=== PATIENT | female | born 1935 | race Caucasian/White ===

== ENCOUNTER 2019-01-22 05:10 | Observation (INO) ==
--- NOTE | 2019-01-02 11:26 | Anesthesiology Consultation ---
Date of Service January 02, 2019 Assessment & Plan (1) Encounter for pre-operative examination: Chart Review Chart Review: Acceptable Risk for Surgery and Patient NOT seen in Pre Admission Testing History Surgery Operation Date: 01/22/19 07:15 Proposed Procedures p Laparoscopic Cholecystectomy, Possible Open, Possible Cholangiogram - Marielle Vasquez MD Height/Weight Height: 5 ft 2 in Weight: 72.575 kg Allergies Allergy/AdvReac Type Severity Reaction Status Date / Time No Known Allergies Allergy Verified 01/01/19 11:22 Medications Home Medications Medication Instructions Recorded Confirmed Last Taken biotin 1 cap PO QAM 01/01/19 01/01/19 Unknown escitalopram oxalate 5 mg PO QAM 01/01/19 01/01/19 Unknown levothyroxine 50 mcg PO QAM 01/01/19 01/01/19 Unknown multivitamin 1 tab PO QAM 01/01/19 01/01/19 Unknown pantoprazole 20 mg PO QAM 01/01/19 01/01/19 Unknown Past Medical History Medical History Depression Diverticular disease GERD (gastroesophageal reflux disease) Heart palpitations History of tooth extraction Hypothyroidism Osteoarthritis Past Family History Family History Brother Pseudocholinesterase deficiency Family history of diabetes mellitus Family/Other Pseudocholinesterase deficiency NIECE Mother Family hx of colon cancer Past Surgical History Surgical History History of appendectomy History of cataract surgery History of colonoscopy History of esophagogastroduodenoscopy (EGD) History of foot surgery LT History of left breast biopsy History of removal of cyst RT KNEE History of tonsillectomy and adenoidectomy History of total abdominal hysterectomy and bilateral salpingo-oophorectomy Slow to wake up after anesthesia Social History Smoking Status: Never smoker Do You Dip or Chew Tobacco: No Hx Alcohol Use: No Hx Substance Use: No substance use type: does not use Testing Laboratory Results 12/28/18 WBC 7.09 H/H 13.7/40.3 PLATELETS 285 SODIUM 146 POTASSIUM 4.4 CHLORIDE 105 CO2 28 BUN 16 CREATININE 1.1 GLUCOSE 102 Electrocardiogram Date: 12/14/18 Findings: + NSR @ (74)
[2019-01-22] MEDS ORDERED: LR 15ML/HR IV SCH (06:00)
[2019-01-22] MEDS ORDERED: CEFAZOLIN 2000MG 2,000 MG/15 ML SYR IV SCH (06:00)
[2019-01-22] MEDS ORDERED: PROPOFOL IV EMULSION 10 MG/ML 20 ML VIAL IV ONE (06:19)
[2019-01-22] MEDS ORDERED: LIDOCAINE HCL 2% 2 ML VIAL/AMP(20MG/ML) INFIL ONE (06:19)
[2019-01-22] MEDS ORDERED: ONDANSETRON INJ 2 MG/ML 2 ML VIAL ONE (06:20)
[2019-01-22] MEDS ORDERED: ROCURONIUM BROMIDE 10 MG/ML 5 ML VIAL ONE (06:20)
[2019-01-22] MEDS ORDERED: DEXAMETHASONE SOD INJ 4 MG/ML VIAL ONE (06:20)
[2019-01-22] MEDS ORDERED: fentaNYL citrate 100 MCG/2 ML VIAL ONE ×2 (06:20→07:48)
[2019-01-22] MEDS ORDERED: MIDAZOLAM HCL 1 MG/ML 2ML VIAL ONE (06:21)
[2019-01-22] MEDS ORDERED: BUPIVACAINE 0.5 % 5 MG/1 ML MPF 30ML VIAL ONE (06:45)
[2019-01-22] MEDS ORDERED: BACITRACIN OINT 15 GM TUBE ONE (06:45)
[2019-01-22] MEDS ORDERED: LIDOCAINE HCL 1% 20 ML VIAL ONE (06:45)
[2019-01-22] MEDS ORDERED: CEFAZOLIN 2000MG 2,000 MG/15 ML SYR IV ONE (06:46)
--- NOTE | 2019-01-22 06:46 | History & Physical Bridge Note ---
Date of Service January 22, 2019 History & Physical Bridge Note I have examined the patient, reviewed the History & Physical and in the interval since the performance of the History & Physical I have noted the following changes of clinical significance: no changes noted
[2019-01-22] MEDS ORDERED: METOCLOPRAMIDE HCL INJ 5 MG/ML 2 ML VIAL IV PRN (06:58)
[2019-01-22] MEDS ORDERED: ATROPINE SULFATE 0.1 MG/ML 10ML SYR IV PRN (06:58)
[2019-01-22] MEDS ORDERED: PROMETHAZINE HCL 12.5 MG in SODIUM CHLORIDE 0.9% 50 ML IV PRN (06:58)
[2019-01-22] MEDS ORDERED: ONDANSETRON INJ 2 MG/ML 2 ML VIAL IV PRN (06:58)
[2019-01-22] MEDS ORDERED: HYDROmorphone INJ 1 MG/ML SYRINGE IV PRN (06:58)
[2019-01-22] MEDS ORDERED: fentaNYL citrate 100 MCG/2 ML VIAL IV PRN (06:58)
[2019-01-22] MEDS ORDERED: ePHEDrine sulfate 50 MG/ML AMP IV PRN (06:58)
[2019-01-22] MEDS ORDERED: GLYCOPYRROLATE 0.2 MG/ML VIAL ONE ×2 (07:33→08:19)
[2019-01-22] MEDS ORDERED: NEOSTIGMINE METHYLSULFATE 5 MG/5 ML SYR ONE (07:33)
[2019-01-22] MEDS ORDERED: ePHEDrine sulfate 50 MG/ML AMP ONE (07:44)
--- NOTE | 2019-01-22 08:27 | Post Operative Brief Note ---
Immediate Post Op Note v1 Date of Surgery January 22, 2019 Pre & Post Diagnosis Operation Date: 01/22/19 07:00 Pre-Op Diagnosis: Symptomatic Cholelithiasis Post-Op Diagnosis: Symptomatic Cholelithiasis Procedure Operation Date: 01/22/19 07:00 Actual Procedures p Laparoscopic Cholecystectomy(Not Applicable) - Marielle Vasquez MD Surgeon Marielle Vasquez MD Housing Case Manager SARAH Gracia Estimated Blood Loss 10 Findings Consistent with Post-Op Diagnosis chronic cholecystitis, cholelithiasis Fluids 1100ml Specimens gallbladder Anesthesia Type General Complications none Disposition Accompanied Patient To Recovery: Yes Disposition: Recovery Room Overlapping Procedure I was immediately available: during the entire case.
[2019-01-22] MEDS ORDERED: OXYCODONE/ACETAMINOPHEN 5mg/325mg TAB PO PRN (08:54)
[2019-01-22] MEDS ORDERED: HYDROmorphone INJ 0.5 MG/0.5 ML SYR IV PRN (08:55)
[2019-01-22] MEDS: LACTATED RINGER'S 1,000 ML IV SCH ×2 (09:40→21:20)
--- NOTE | 2019-01-22 09:51 | Anesthesiology Progress Note ---
Date of Service January 22, 2019 Anesthesia Post Procedure Vital Signs Vital Signs: Temp Pulse Pulse Resp BP BP Pulse Ox 01/22/19 09:25 36.5 C 66 18 150/78 H 98 01/22/19 09:15 73 18 134/76 97 01/22/19 09:05 64 20 159/82 H 100 01/22/19 08:55 74 18 150/68 H 100 01/22/19 08:49 36.8 C 96 H 18 164/80 H 100 01/22/19 05:58 37.1 C 101 H 22 157/71 H 97 Pain Intensity Abdomen: Pain Intensity: 4 Transfer of Care Handoff Completed per policy Notes Mental Status: alert / awake / arousable and participated in evaluation Patient Amnestic to Procedure: Yes Nausea / Vomiting: adequately controlled Pain: adequately controlled Airway Patency, RR, SpO2: stable & adequate BP & HR: stable & adequate Hydration State: stable & adequate Anesthetic Complications: no major complications apparent
[2019-01-22] MEDS: SULFAMETHOXAZOLE/TRIMETHOPRIM DS 800/160MG TAB PO SCH ×2 (11:33→21:19)
--- NOTE | 2019-01-22 13:44 | Operative Report ---
DATE OF OPERATION: 01/22/2019 PREOPERATIVE DIAGNOSES: Chronic cholecystitis, cholelithiasis. POSTOPERATIVE DIAGNOSES: Chronic cholecystitis, cholelithiasis. OPERATION: Laparoscopic cholecystectomy. SURGEON: Marielle Vasquez MD. CANDLE POURER: Coby Wilde PA-C. ANESTHESIA: General. ESTIMATED BLOOD LOSS: About 10 mL. FINDINGS: Chronic cholecystitis, cholelithiasis. COMPLICATIONS: None. INDICATIONS FOR THE PROCEDURE: This is an 83-year-old female who presented with symptomatic cholelithiasis. The patient will be required to do laparoscopic cholecystectomy, possible open, possible cholangiogram. I did talk to the patient about the benefit and risk, alternate procedure. I indicated the risks may include but not limited such as bleeding, infection, injury to common bile duct, injury to the bowel, myocardial infarction, DVT, stroke and even . The patient understands. She signed informed consent and I answered all questions. DETAILS OF PROCEDURE: We brought the patient to the OR, put the patient in the supine position. The patient received SCD on bilateral legs to prevent DVT. Also, patient received 2 grams Ancef IV for prophylactic antibiotic. The patient received general anesthesia without difficulty. His abdomen was appropriately draped in routine sterile fashion. After time out, I injected local anesthesia by using 1% lidocaine mixed with 0.5% Marcaine just above umbilicus. Then I made a small incision just above umbilicus, opened fascia and opened peritoneum under direct vision, put a Tae trocar in, connected to CO2 to create pneumoperitoneum. Flow rate is 6 liter per minute. Pressure not more than 14 mmHg. Once we got a nice pneumoperitoneum, we put the camera in, looked around the abdomen shows normal finding on the liver. However, the gallbladder shows chronic cholecystitis. Then, we put another two 5 mm trocar on the right upper quadrant, one 11 trocar on the epigastric area. Once all trocars in, we put a grasper to hold the base of gallbladder, put direction to the diaphragm, put another grasper to hold the pouch of gallbladder, put the latter to expunge the triangle of Calot, the cystic duct was identified and mobilized. Then I put two 10 mm metal clips on the proximal cystic duct, one on the distal cystic duct. I used a scissor for transection of cystic duct, no bile leak. Then the cystic artery was identified and mobilized. I put two 5 mm metal clip on the proximal cystic artery, one on the distal cystic artery and used a scissor for transection of the cystic artery. Rechecked, no active bleeding and then we used the Bovie to take down gallbladder from the liver bed. Rechecked and no active bleeding, no bile leak from the liver bed. Then we removed gallbladder through the catch bag then we reinserted Tae trocar in, connected to CO2 to create pneumoperitoneum, again looked around the abdomen, no active bleeding, no bile leak from the liver bed. Pneumoperitoneum was released. Then we removed all the trocars under direct vision. No active bleeding from the trocar sites. Pneumoperitoneum was released. Then we closed the umbilical incision, fascial layer by using #1 Vicryl [id number] x2, closed subcutaneous layer by using 2-0 Vicryl interrupted and closed skin by using 4-0 Vicryl continuous running, closed the 11 trocar site subcutaneous layer by using 2-0 Vicryl interruptedly, closed skin by using 4-0 Vicryl and closed another 5 mm trocar site skin only by using 4-0 Vicryl. Then we put the dressing on. The patient tolerated the procedure well. All instrument, needle and sponge count were correct x2 at the end of the case. The patient transferred to recovery room in stable condition. Specimen sent to the pathology and after procedure, the patient will be admitted to hospital overnight for observation. The patient and family member agree with this plan. I attest to the content of the Intraoperative Record and any orders documented therein. Any exception s are noted below.
[2019-01-22] MEDS ORDERED: CEFAZOLIN 1000MG 1,000 MG/7.5 ML SYR IV ONE (15:00)
[2019-01-23] MEDS ORDERED: LEVOTHYROXINE SODIUM 50 MCG TABLET PO SCH (06:30)
[2019-01-23] MEDS ORDERED: PNEUMOCOCCAL ADMINISTRATION CHARGE ONE (08:00)
[2019-01-23] MEDS ORDERED: PNEUMOCOCCAL POLYSACCHARIDES 25 MCG/0.5 ML VIAL/SYR IM ONE (08:00)
[2019-01-23 08:08] LABS: Basophils # (auto) 0.07 K/uL (0-0.2); Eosinophils # (auto) 0.26 K/uL (0-0.5); Eosinophils % (auto) 3.8 %; Hematocrit (blood only) 29.6 % (37-47); Hemoglobin 10.4 g/dL (12.0-16.0); Immature Granulocytes # (auto) 0.02 K/uL (0.00-0.02); Immature Granulocytes % (auto) 0.3 %; Lymphocytes # (auto) 1.49 K/uL (1.2-3.4); Mean Corpuscular Hgb Conc 35.1 g/dL (32-36); Mean Corpuscular Volume 91.1 fL (80-100); Mean Platelet Volume 8.9 fL (7.4-10.4); Monocytes # (auto) 0.43 K/uL (0.11-0.59); Monocytes % (auto) 6.4 %; Neutrophils # (auto) 4.49 K/uL (1.4-6.5); Neutrophils % (auto) 66.5 %; Platelet Count 180 K/uL (130-400); RDW Standard Deviation 43.2 fL (36.4-46.3); Red Blood Count 3.25 M/uL (4.2-5.4); White Blood Count 6.76 K/uL (4.8-10.8)
[2019-01-23 08:16] LABS: BUN Creatinine Ratio 9.7 (10-20); Calcium 8.6 mg/dl (8.5-10.1); Creatinine Clr Calc Pharmacy 42.7 ml/min; Est GFR (African American) 65.1; Est GFR (Non-African American) 56.2; Potassium 3.8 mmol/L (3.5-5.1)
[2019-01-23 08:19] LABS: Albumin Globulin Ratio 1.2 (0.9-2); Bilirubin,Total 0.3 mg/dl (0.2-1); Globulin 2.5 gm/dl (2.5-4.0); Total Protein 5.5 gm/dl (6.4-8.2)
--- NOTE | 2019-01-23 08:23 | Anesthesiology Progress Note ---
Date of Service January 23, 2019 Anesthesia Post Procedure Vital Signs Vital Signs: Temp Pulse Pulse Resp BP Pulse Ox 01/23/19 07:25 36.7 C 64 20 110/70 94 01/23/19 03:00 36.7 C 67 18 163/80 H 97 01/22/19 23:47 36.8 C 72 18 131/60 95 01/22/19 19:12 37 C 76 16 123/75 95 01/22/19 15:26 36.6 C 66 16 124/75 94 01/22/19 13:45 36.5 C 88 16 121/74 99 01/22/19 11:40 36.6 C 71 16 136/73 96 01/22/19 10:45 36.5 C 67 16 144/71 H 97 01/22/19 10:15 72 16 156/85 H 01/22/19 09:40 36.3 C L 66 14 144/70 H 98 01/22/19 09:25 36.5 C 66 18 150/78 H 98 01/22/19 09:15 73 18 134/76 97 01/22/19 09:05 64 20 159/82 H 100 01/22/19 08:55 74 18 150/68 H 100 01/22/19 08:49 36.8 C 96 H 18 164/80 H 100 Pain Intensity Abdomen: Pain Intensity: 4 Notes Mental Status: alert / awake / arousable and participated in evaluation Patient Amnestic to Procedure: Yes Nausea / Vomiting: adequately controlled Pain: adequately controlled Airway Patency, RR, SpO2: stable & adequate BP & HR: stable & adequate Hydration State: stable & adequate Anesthetic Complications: no major complications apparent and Pt Satisfied with anesthetic care
[2019-01-23] MEDS ORDERED: PANTOprazole 40 MG TAB PO SCH (09:00)
[2019-01-23] MEDS ORDERED: NON-FORMULARY MEDICATION (Biotin 1 CAP) PO SCH (09:00)
[2019-01-23] MEDS ORDERED: ESCITALOPRAM OXALATE 10 MG TAB PO SCH (09:00)
[2019-01-23] MEDS ORDERED: MULTIVITAMIN TAB PO SCH (09:00)
--- NOTE | 2019-01-23 10:09 | Surgery Progress Note ---
Date of Service January 23, 2019 Assessment & Plan (1) S/P laparoscopic cholecystectomy: POD # 1 s/p laparoscopic cholecystectomy -vitals stable, mildly hypertensive this morning but repeat bp 110/70 - afebrile, no leukocytosis - no post op pain - no n/v Plan: discharge home discharge instructions reviewed No rx as she is having little post op pain. Can take extra strength Tylenol or Ibuprofen for pain f/u surgical office in 1-[address] Vasquez has seen patient, agrees with above Subjective feeling good, no abdominal/incisional pain has not needed any pain medication tolerated diet has not had bowel movement yet but feels she might have to soon no n/v Physical Exam Constitutional: WD/WN, vitals as above no acute distress Gastrointestinal (Abdomen): Inspection/Auscultation: + abdominal surgical incision (laparoscopic incisions covered with dressing, spotting present. ); abdomen not distended Percussion/Palpation: abdomen soft; abdomen nontender, no guarding and abdomen not rigid Skin: no rashes, warm and dry + incision (erythema and bruising inferior to supraumbilical incision, no induration) Psychiatric: A+Ox3, euthymic affect Results & Data Vital Signs (Past 12 Hours) Vital Signs Temp Pulse Resp BP Pulse Ox 01/23/19 07:25 36.7 C 64 20 110/70 94 01/23/19 03:00 36.7 C 67 18 163/80 H 97 01/22/19 23:47 36.8 C 72 18 131/60 95 Laboratory Results 01/23/19 01/23/19 Range/Units 07:13 07:13 WBC 6.76 (4.8-10.8) K/uL RBC 3.25 L (4.2-5.4) M/uL Hgb 10.4 L (12.0-16.0) g/dL Hct 29.6 L (37-47) % MCV 91.1 (80-100) fL MCH 32.0 (25-34) pg MCHC 35.1 (32-36) g/dL RDW Std Deviation 43.2 (36.4-46.3) fL RDW Coeff of Zulma 13.0 (11.5-14.5) % Plt Count 180 (130-400) K/uL MPV 8.9 (7.4-10.4) fL Immature Gran % (Auto) 0.3 % Neut % (Auto) 66.5 % Lymph % (Auto) 22.0 % Bee % (Auto) 6.4 % Eos % (Auto) 3.8 % Baso % (Auto) 1.0 % Immature Gran # (Auto) 0.02 (0.00-0.02) K/uL Neut # (Auto) 4.49 (1.4-6.5) K/uL Lymph # (Auto) 1.49 (1.2-3.4) K/uL Bee # (Auto) 0.43 (0.11-0.59) K/uL Eos # (Auto) 0.26 (0-0.5) K/uL Baso # (Auto) 0.07 (0-0.2) K/uL Sodium 142 (136-145) mmol/L Potassium 3.8 (3.5-5.1) mmol/L Chloride 110 H (98-107) mmol/L Carbon Dioxide 26 (21-32) mmol/L Anion Gap 6.0 (3-11) BUN 9 (7-18) mg/dl Creatinine 0.95 (0.6-1.2) mg/dl Est Cr Clr Drug Dosing 42.7 ml/min Est GFR ( Amer) 65.1 Est GFR (Non-Af Amer) 56.2 BUN/Creatinine Ratio 9.7 L (10-20) Glucose 87 (70-99) mg/dl Calcium 8.6 (8.5-10.1) mg/dl Total Bilirubin 0.3 (0.2-1) mg/dl AST 17 (15-37) U/L ALT 14 (12-78) U/L Alkaline Phosphatase 80 (45-117) U/L Total Protein 5.5 L (6.4-8.2) gm/dl Albumin 3.0 L (3.4-5.0) gm/dl Globulin 2.5 (2.5-4.0) gm/dl Albumin/Globulin Ratio 1.2 (0.9-2)
[2019-01-23] MEDS: SULFAMETHOXAZOLE/TRIMETHOPRIM DS 800/160MG TAB PO SCH (10:36)
[2019-01-23] MEDS ORDERED: DOCUSATE SODIUM 100 MG CAP PO ONE (11:00)
--- NOTE | 2019-01-24 14:32 | Discharge Summary ---
Date of Service January 24, 2019 Admission HPI Per Admitting Provider Patient presented to [facility] for elective outpatient laparoscopic cholecystectomy for symptomatic cholelithiasis and chronic cholecystitis. Principal Diagnosis Symptomatic cholelithiasis Discharge Data Allergies Allergy/AdvReac Type Severity Reaction Status Date / Time No Known Allergies Allergy Verified 01/01/19 11:22 Procedures Performed Operation Date: 01/22/19 07:00 Actual Procedures p Laparoscopic Cholecystectomy(Not Applicable) - Marielle Vasquez MD Hospital Course (1) Chronic cholecystitis: Patient taken to operating room for laparoscopic cholecystectomy possible open possible IOC. Patient tolerated procedure well and was transferred to recovery and then to medical/surgical floor for postoperative care. She was started on clear liquid diet, her home medications, PO Percocet prn pain, IV fluids, IV Zofran prn nausea, activity as tolerated, and SCDS for dvt prophylaxis. Diet was advanced to regular diet evening of her procedure. POD # 1 vitals stable other than some hypertension (BP 163/83), afebrile, no post op pain, no n/v, feeling good. Labs wnl. Patient's following bp was 110/70. Patient was discharged home on POD # 1 in stable condition. (2) Symptomatic cholelithiasis: course as above Total Time Total Time Spent Total Time Spent (In Minutes): 20 Total Time Includes: Examination of the Patient, Discharge Planning and Medication Reconciliation Discharge Plan Discharge Items Patient Disposition: Home - Self-Care Reason For Visit: Symptomatic Cholelithiasis Discharge Diagnosis: same Discharge Goals: Decrease discomfort and Improve function Activity: Per 'Additional Instructions' section Non-emergency contact: Surgeon Call non-emergency contact if: your pain is not controlled, your pain is worsening, your pain is concerning for you, your temperature is above 101, your wound has increased redness, your wound has increased drainage and your wound pain has increased Follow-up/Referrals: Caterina Tam MD [Primary Care Provider] - Diet: Regular Diet Comment: No dietary restrictions Addtl Provider Instructions: No heavy lifting over 20 pounds for 3-4 weeks no strenuous activity until cleared by surgeon, (not a lot of bending over) No submerging incisions underwater for 2 weeks (no bathing, swimming, or hot tubs) No driving until you are pain free You may shower in 4 days, sponge bath and wash hair in meantime. After 4 days, remove outer dressings and shower. Leave steri strips on incisions and allow water to run over and pat dry. After you shower, place small bandage on each of the incisions and change daily after showering. Walking multiple times daily at home is recommended to prevent blood clots from forming in your legs. You may take extra strength Tylenol or Ibuprofen as needed for mild pain. - 650 mg of Tylenol every 6 hours as needed - 600 mg of Ibuprofen every 6 hours as needed Follow-up in surgical office in 1-2 weeks. Please call office at [phone] if you do not already have a follow-up appointment made. Prescriptions: Continued pantoprazole 20 mg Tablet,Delayed Release (Dr/Ec) 20 mg PO QAM RF: 0 levothyroxine 50 mcg Tablet 50 mcg PO QAM RF: 0 escitalopram oxalate 5 mg Tablet 5 mg PO QAM RF: 0 multivitamin Tablet 1 tab PO QAM RF: 0 biotin 1 cap PO QAM RF: 0 sulfamethoxazole-trimethoprim [Bactrim] 400-80 mg Tablet 1 tab PO Q12H RF: 0 Stand-Alone Forms: [facility]/Other Patient Handouts: Surgery Prevent DVT After, Cholecystectomy Laparoscopic Discharge Orders: Discharge Order (Routine); Ordered 01/23/19 Ordered By: Coby Wilde Admission Data Admit Date/Time: 01/22/19 08:52 Attending Provider: Marielle Vasquez Admit Provider: Marielle Vasquez Primary Care Provider: Caterina Tam Service: Surgical Services Other Interventions: Discharge Summary Assessment (RN) Last Done: 01/23/19 10:52 Pending Studies at Discharge: Yes (gallbladder pathology, will be reviewed at follow-up visit) DC Date/Time DO NOT enter until pt leaves facility: 01/23/19 11:38
--- NOTE | 2019-01-24 23:30 | Discharge Summary ---
ADMITTING DIAGNOSIS: Chronic cholecystitis. DISCHARGE DIAGNOSIS: Chronic cholecystitis. OPERATION: Laparoscopic cholecystectomy. SURGEON: Marielle Vasquez M.D. DETAILS OF DISCHARGE SUMMARY: This is an 83-year-old female who had a laparoscopic cholecystectomy on 01/22. After procedure, the patient routinely admitted to hospital observation for overnight and patient tolerated the procedure well and during stay overnight, patient was doing fine and she tolerated a regular diet. No nausea, no vomiting, no significant abdominal pain. PHYSICAL EXAMINATION: VITAL SIGNS: Temperature is 36.7, heart rate 88, respiratory rate 20, and blood pressure 110/70, O2 saturation 94% on room air. GENERAL: The patient is alert, awake, oriented x3. HEENT: With normal limitation. NEUROLOGIC: Intact. NECK: No JVD. CHEST: Bilateral lung sounds clear. HEART: Normal S1, S2. No murmur. ABDOMEN: Soft, nondistended, no tenderness. All incision dressing intact. No drainage, no redness. EXTREMITIES: No edema. PLAN: The patient wanted to go home on 01/23/2019. We gave the patient postop care instructions. The patient understands. I will follow up the patient in 1 week in my office.
== END 2019-01-23 11:38 | disposition home or self-care (01) ==
LOC: ASU 05:10 → 3N 05:10